=== PATIENT | male | born 1995 | race Caucasian/White ===

== ENCOUNTER 2016-11-12 18:53 | Emergency (ER) | payer OTHER ==
[~2016-11-12] VITALS: Ht 170.2 cm; Wt 71.2 kg
[2016-11-12 21:00] VITALS: BP 133/85
== END 2016-11-12 21:00 | disposition home or self-care (01) ==
LOC: ED 18:53
DX: M54.41 Lumbago with sciatica, right side (principal); M54.16 Radiculopathy, lumbar region